=== PATIENT | female | born 1950 | race Caucasian/White ===

== ENCOUNTER 2021-07-03 16:47 | Inpatient (IN) ==
[2021-07-03] MEDS ORDERED: ONDANSETRON INJ 2 MG/ML 2 ML VIAL IV STA (18:09)
[2021-07-03] MEDS ORDERED: MoRPHine SULFATE 4 MG/ML 1 ML CARP\\VIAL IV STA (18:09)
[2021-07-03] MEDS ORDERED: VANCOMYCIN CONSULT ACTIVE PRN (18:24)
[2021-07-03] MEDS ORDERED: VANCOMYCIN HCL 2,750 MG in SODIUM CHLORIDE 0.9% 500 ML IV ONE (18:24)
--- NOTE | 2021-07-03 18:37 | XRay Report ---
XR knee LT 4V CLINICAL HISTORY: post op infection COMPARISON: None FINDINGS: Alignment of the total left knee arthroplasty is anatomic. There is no periprosthetic frac ture or unexpected radiopaque foreign body. There are skin zoila. There is left knee soft tissue sw elling with a suspected moderate joint effusion. IMPRESSION: 1. Status post total left knee arthroplasty. No periprosthetic fracture or lucency. 2. Left knee soft tissue swelling with suspected joint effusion. ACT 112: Negative or not required by law. Electronically signed by: Waqar England M.D. 07/03/2021 6:36 PM
[2021-07-03 18:53] LABS: Basophils # (auto) 0.04 K/uL (0-0.2); Basophils % (auto) 0.5 %; Eosinophils # (auto) 0.61 K/uL (0-0.5); Eosinophils % (auto) 7.8 %; Hemoglobin 11.2 g/dL (12.0-16.0); Immature Granulocytes # (auto) 0.01 K/uL (0.00-0.02); Immature Granulocytes % (auto) 0.1 %; Lymphocytes # (auto) 1.25 K/uL (1.2-3.4); Mean Corpuscular Hemoglobin 30.8 pg (25-34); Mean Corpuscular Volume 96.2 fL (80-100); Monocytes # (auto) 0.83 K/uL (0.11-0.59); Monocytes % (auto) 10.6 %; Neutrophils # (auto) 5.09 K/uL (1.4-6.5); Platelet Count 427 K/uL (130-400); RDW Coefficient of Variation 14.1 % (11.5-14.5); RDW Standard Deviation 49.5 fL (36.4-46.3); Red Blood Count 3.64 M/uL (4.2-5.4); White Blood Count 7.83 K/uL (4.8-10.8)
[2021-07-03 19:05] LABS: Potassium 3.8 mmol/L (3.5-5.1)
[2021-07-03 19:10] LABS: BUN Creatinine Ratio 13.5 (10-20); Creatinine Clr Calc Pharmacy 84.4 ml/min; Est GFR (African American) 87.2 ml/min; Est GFR (Non-African American) 75.2 ml/min
[2021-07-03 19:11] LABS: C Reactive Protein 9.03 mg/dl (0-0.29)
[2021-07-03] MEDS ORDERED: HYDROmorphone INJ 0.5 MG/0.5 ML SYR IV PRN (22:37)
[2021-07-03] MEDS ORDERED: PIPERACILL/TAZOBAC CONSULT ACTIVE PRN (23:27)
[2021-07-03] MEDS ORDERED: ACETAMINOPHEN 500 MG TAB PO PRN (23:28)
[2021-07-03] MEDS ORDERED: PIPERACILLIN/TAZOBACTAM 3.375 GM in DEXTROSE 5% 100 ML IV SCH (23:30)
[2021-07-03] MEDS ORDERED: PIPERACILLIN/TAZOBACTAM 4.5 GM in DEXTROSE 5% 100 ML IV ONE (23:45)
[2021-07-03] MEDS: SODIUM CHLORIDE 0.9% 1000ML 1,000 ML IV SCH (23:55)
--- NOTE | 2021-07-04 01:23 | Emergency Department Note ---
History of Present Illness General Chief complaint: Infection, Wound Stated complaint: INFECTION IN L KNEE Time Seen by Provider: 07/03/21 18:00 History of Present Illness Provider complaint: Left knee infection Onset (ago): week(s) 1 Location: lower extremity and left Radiation: non-radiation Severity: moderate Pain Consistency: + constant Maximum Pain Intensity: 8 Current Pain Intensity: 8 Quality: + aching Relieved By: + immobilization Exacerbated By: + movement Associated symptoms: + fever/chills and + rash; no cough, no headaches, no nausea/vomiting or no shortness of breath 71-year-old female presents emergency department for left knee infection. Patient states she had a left knee replacement done by Dr. Ziegler on June 16, 2020 1U of C. Patient states for the last 1 week she has been having chills and subjective fevers. She states she started having redness over the incision site and her pain is worsened by movement. Home Medications Medication Instructions Recorded Confirmed Type acetaminophen 500 mg tablet 100 mg PO Q8H PRN 07/03/21 07/03/21 History (Tylenol Extra Strength) aspirin 81 mg tablet,delayed 81 mg PO DAILY 07/03/21 07/03/21 History release cefadroxil 500 mg capsule 1,500 mg PO BID 07/03/21 07/03/21 History celecoxib 200 mg capsule (Celebrex) 200 mg PO BID 07/03/21 07/03/21 History duloxetine 30 mg capsule,delayed 90 mg PO DAILY 07/03/21 07/03/21 History release sprinkle Allergies Allergy/AdvReac Type Severity Reaction Status Date / Time bupropion [From Wellbutrin] AdvReac Hives Unverified 07/03/21 18:40 iodine AdvReac Hives Unverified 07/03/21 18:40 shellfish derived AdvReac Hives Unverified 07/03/21 18:40 Past Med/Surg History Medical History (Updated 07/04/21 @ 01:23 by Frank Mcneill) Depression No pertinent family history Surgical History (Updated 07/04/21 @ 01:19 by Frank Mcneill) History of knee replacement Social History Smoking Status: Former smoker Hx Alcohol Use: No Hx Substance Use: No Preferred Language: Bulgarian Communication Ability: Effective Beliefs That Will Affect Care: None Current Living Situation: Alone Other Information That Helps Us Care for You: No Feels Safe at Home: Yes Safety Concerns: Feels Safe At This Time Assistive Devices: Glasses and Walker Review of Systems A total of 10 systems reviewed and were otherwise negative Physical Exam Vital Signs Vital Signs - 24 hr 07/03/21 17:26 07/03/21 18:01 07/03/21 18:08 Temperature 36.1 C L Temperature Source Temporal Artery Scan Oral Pulse Rate 89 Pulse Rate [Apical] Pulse Rhythm Regular Respiratory Rate 20 Respiratory Effort / Characteristics Non-Labored Spontaneous Respiratory Depth Normal Respiratory Pattern Regular Blood Pressure 111/72 Blood Pressure [Right Arm] Blood Pressure Mean 85 Blood Pressure Mean [Right Arm] Pulse Oximetry 99 Oxygen Delivery Method Room Air Room Air Sepsis Recent Fever Within 48 Hours No Sepsis New/Unexplained Change in Mental Status No Sepsis Action Taken by Nursing No Action Required 07/03/21 19:17 Temperature Temperature Source Pulse Rate Pulse Rate [Apical] 84 Pulse Rhythm Respiratory Rate 20 Respiratory Effort / Characteristics Non-Labored Spontaneous Respiratory Depth Normal Respiratory Pattern Regular Blood Pressure Blood Pressure [Right Arm] 105/62 Blood Pressure Mean Blood Pressure Mean [Right Arm] 76 Pulse Oximetry 94 Oxygen Delivery Method Room Air Sepsis Recent Fever Within 48 Hours Sepsis New/Unexplained Change in Mental Status Sepsis Action Taken by Nursing Physical Exam GENERAL: She is oriented to person, place, and time. She appears well-developed and well-nourished. She does not appear distressed. HENT: Exam performed. -Head: Normocephalic and atraumatic. -Right Ear: External ear normal. No mastoid tenderness. -Left Ear: External ear normal. No mastoid tenderness. -Mouth/Throat: The oropharynx is clear and moist. No trismus in the jaw. No dental abscesses or uvula swelling. No oropharyngeal exudate or tonsillar abscesses. EYES: Conjunctivae and EOM are normal. Pupils are equal, round, and reactive to light. Right eye exhibits no discharge. Left eye exhibits no discharge. No scleral icterus. NECK: Normal range of motion. Neck supple. No JVD present. No spinous process tenderness present. No carotid bruit present. No rigidity. No tracheal deviation and normal range of motion present. No Brudzinski's sign and no Kernig's sign noted. CV: Normal rate, regular rhythm, normal heart sounds and intact distal pulses. There is no peripheral edema. Palpable radial pulses bue. PULM/CHEST: Effort normal and breath sounds normal. No respiratory distress. No stridor. She has no wheezes. She has no rales. -Chest Wall: She exhibits no tenderness. ABD: The abdomen is soft. Bowel sounds are normal. She has no distension. No mass is present. There is no tenderness. There is no rebound, no guarding, no White's sign and no tenderness at McBurney's point. Rovsig negative MUSC/SKEL: Left lower extremity: Erythema and warmth over the surgical wound over the left anterior knee. There is discharge coming from the surgical wound. Palpable DP and PT pulse. Right lower extremity: Within normal limits. Palpable DP and PT pulse. NEURO: She is alert and oriented to person, place, and time. She has normal strength. No cranial nerve deficit or sensory deficit. Coordination and gait normal. GCS eye subscore is 4. GCS verbal subscore is 5. GCS motor subscore is 6. Cerebellar tests wnl. SKIN: Skin is warm and dry. She is not diaphoretic. PSYCH: She has a normal mood and affect. Behavior is normal. Judgment and thought content normal. Course Course 1800: The patient was evaluated in room B12. A complete history and physical exam was performed Cardiac monitoring: An order was placed for continuous cardiac monitoring. The monitor shows a rate of 80 with sinus rhythm 2000: Vital signs stable. Labs show an elevated CRP and ESR. Vancomycin given for a presumed postoperative infection. Discussed the case with patient surgeon Dr. Ziegler who states that the patient will be admitted to his service. Administered Medications Sodium Chloride (Nss 1000ml) 1,000 mls @ 125 mls/hr IV .Q8H DEANNE Stop: 08/02/21 23:29 Last Infusion: 07/04/21 00:09 Dose: 0 mls/hr Documented by: [id number] Admin: 07/03/21 23:55 Dose: 125 mls/hr Documented by: [id number] Discontinued Medications Hydromorphone HCl (Hydromorphone Inj 0.5 Mg/0.5 Ml Syr) 0.5 mg IV Q4H PRN PRN Reason: Pain Stop: 07/17/21 22:36 Last Admin: 07/03/21 23:00 Dose: 0.5 mg Documented by: [id number] Vancomycin HCl 2,750 mg/ (Sodium Chloride) 555 mls @ 200 mls/hr IV NOW ONE Stop: 07/03/21 21:10 Last Infusion: 07/03/21 23:27 Dose: 0 mls/hr Documented by: [id number] Admin: 07/03/21 19:23 Dose: 200 mls/hr Documented by: [id number] Piperacillin Sod/Tazobactam (Sod 4.5 gm/ Dextrose) 120 mls @ 200 mls/hr IV ONE ONE; Protocol Stop: 07/04/21 00:20 Last Infusion: 07/04/21 00:58 Dose: 200 mls/hr Documented by: [id number] Infusion: 07/04/21 00:10 Dose: 0 mls/hr Documented by: [id number] Admin: 07/03/21 23:55 Dose: 200 mls/hr Documented by: [id number] Morphine Sulfate (Morphine Sulfate 4 Mg/Ml 1 Ml Carp\Vial) 4 mg IV NOW STA Stop: 07/03/21 18:10 Last Admin: 07/03/21 18:47 Dose: 4 mg Documented by: [id number] Ondansetron HCl (Ondansetron Inj 2 Mg/Ml 2 Ml Vial) 4 mg IV NOW STA Stop: 07/03/21 18:10 Last Admin: 07/03/21 18:47 Dose: 4 mg Documented by: [id number] Medical Decision Making Laboratory Data Result diagrams: 07/03/21 18:31 07/03/21 18:31 Lab Results 07/03/21 07/03/21 07/03/21 Range/Units 18:30 18:30 18:31 WBC 7.83 (4.8-10.8) K/uL RBC 3.64 L (4.2-5.4) M/uL Hgb 11.2 L (12.0-16.0) g/dL Hct 35.0 L (37-47) % MCV 96.2 (80-100) fL MCH 30.8 (25-34) pg MCHC 32.0 (32-36) g/dL RDW Std Deviation 49.5 H (36.4-46.3) fL RDW Coeff of Nayan 14.1 (11.5-14.5) % Plt Count 427 H (130-400) K/uL MPV 9.0 (7.4-10.4) fL Immature Gran % (Auto) 0.1 % Neut % (Auto) 65.0 % Lymph % (Auto) 16.0 % [place] % (Auto) 10.6 % Eos % (Auto) 7.8 % Baso % (Auto) 0.5 % Neut # (Auto) 5.09 (1.4-6.5) K/uL Lymph # (Auto) 1.25 (1.2-3.4) K/uL [place] # (Auto) 0.83 H (0.11-0.59) K/uL Eos # (Auto) 0.61 H (0-0.5) K/uL Baso # (Auto) 0.04 (0-0.2) K/uL Immature Gran # (Auto) 0.01 (0.00-0.02) K/uL ESR (0-30) mm/hr Sodium (136-145) mmol/L Potassium (3.5-5.1) mmol/L Chloride (98-107) mmol/L Carbon Dioxide (21-32) mmol/L Anion Gap (3-11) BUN (7-18) mg/dl Creatinine (0.6-1.2) mg/dl Est Cr Clr Drug Dosing ml/min Est GFR ( Amer) ml/min Est GFR (Non-Af Amer) ml/min BUN/Creatinine Ratio (10-20) Glucose (70-99) mg/dl Lactate (0.4-2.0) mmol/L Calcium (8.5-10.1) mg/dl C-Reactive Protein (0-0.29) mg/dl COVID-19 Eval Order Covid19 at [facility] SARS-CoV-2 (PCR) NEGATIVE (Negative) Hepatitis C Ab Screen (Neg) 07/03/21 07/03/21 07/03/21 Range/Units 18:31 18:31 18:31 WBC (4.8-10.8) K/uL RBC (4.2-5.4) M/uL Hgb (12.0-16.0) g/dL Hct (37-47) % MCV (80-100) fL MCH (25-34) pg MCHC (32-36) g/dL RDW Std Deviation (36.4-46.3) fL RDW Coeff of Nayan (11.5-14.5) % Plt Count (130-400) K/uL MPV (7.4-10.4) fL Immature Gran % (Auto) % Neut % (Auto) % Lymph % (Auto) % [place] % (Auto) % Eos % (Auto) % Baso % (Auto) % Neut # (Auto) (1.4-6.5) K/uL Lymph # (Auto) (1.2-3.4) K/uL [place] # (Auto) (0.11-0.59) K/uL Eos # (Auto) (0-0.5) K/uL Baso # (Auto) (0-0.2) K/uL Immature Gran # (Auto) (0.00-0.02) K/uL ESR 70 H (0-30) mm/hr Sodium 139 (136-145) mmol/L Potassium 3.8 (3.5-5.1) mmol/L Chloride 107 (98-107) mmol/L Carbon Dioxide 25 (21-32) mmol/L Anion Gap 7.0 (3-11) BUN 11 (7-18) mg/dl Creatinine 0.80 (0.6-1.2) mg/dl Est Cr Clr Drug Dosing 84.4 ml/min Est GFR ( Amer) 87.2 ml/min Est GFR (Non-Af Amer) 75.2 ml/min BUN/Creatinine Ratio 13.5 (10-20) Glucose 89 (70-99) mg/dl Lactate 1.4 (0.4-2.0) mmol/L Calcium 9.0 (8.5-10.1) mg/dl C-Reactive Protein 9.03 H (0-0.29) mg/dl COVID-19 Eval Order SARS-CoV-2 (PCR) (Negative) Hepatitis C Ab Screen (Neg) 07/03/21 07/03/21 Range/Units 18:31 18:45 WBC (4.8-10.8) K/uL RBC (4.2-5.4) M/uL Hgb (12.0-16.0) g/dL Hct (37-47) % MCV (80-100) fL MCH (25-34) pg MCHC (32-36) g/dL RDW Std Deviation (36.4-46.3) fL RDW Coeff of Nayan (11.5-14.5) % Plt Count (130-400) K/uL MPV (7.4-10.4) fL Immature Gran % (Auto) % Neut % (Auto) % Lymph % (Auto) % [place] % (Auto) % Eos % (Auto) % Baso % (Auto) % Neut # (Auto) (1.4-6.5) K/uL Lymph # (Auto) (1.2-3.4) K/uL [place] # (Auto) (0.11-0.59) K/uL Eos # (Auto) (0-0.5) K/uL Baso # (Auto) (0-0.2) K/uL Immature Gran # (Auto) (0.00-0.02) K/uL ESR (0-30) mm/hr Sodium (136-145) mmol/L Potassium (3.5-5.1) mmol/L Chloride (98-107) mmol/L Carbon Dioxide (21-32) mmol/L Anion Gap (3-11) BUN (7-18) mg/dl Creatinine (0.6-1.2) mg/dl Est Cr Clr Drug Dosing ml/min Est GFR ( Amer) ml/min Est GFR (Non-Af Amer) ml/min BUN/Creatinine Ratio (10-20) Glucose (70-99) mg/dl Lactate (0.4-2.0) mmol/L Calcium (8.5-10.1) mg/dl C-Reactive Protein Cancelled (0-0.29) mg/dl COVID-19 Eval Order SARS-CoV-2 (PCR) (Negative) Hepatitis C Ab Screen Neg (Neg) Imaging Data Radiologist's Impression: Knee X-Ray 07/03/21 18:08 XR knee LT 4V CLINICAL HISTORY: post op infection COMPARISON: None FINDINGS: Alignment of the total left knee arthroplasty is anatomic. There is no periprosthetic fracture or unexpected radiopaque foreign body. There are skin zoila. There is left knee soft tissue swelling with a suspected moderate joint effusion. IMPRESSION: 1. Status post total left knee arthroplasty. No periprosthetic fracture or lucency. 2. Left knee soft tissue swelling with suspected joint effusion. ACT 112: Negative or not required by law. Electronically signed by: Waqar England M.D. 07/03/2021 6:36 PM MDM Narrative Vital signs stable. Labs show an elevated CRP and ESR. Vancomycin given for a presumed postoperative infection. Discussed the case with patient surgeon Dr. Ziegler who states that the patient will be admitted to his service. Impression & Plan Post-operative infection Discharge Plan Visit Data Chief Complaint: Infection, Wound Stated Complaint: INFECTION IN L KNEE Discharge Problem: Post-operative infection Patient Disposition: Admitted As Inpatient Discharge Instructions Interventions: ED Discharge Assessment Last Done: 07/03/21 21:38
--- NOTE | 2021-07-04 02:05 | Consultation Report ---
DATE OF CONSULTATION: 07/03/2021 CHIEF COMPLAINT: Left lower extremity infection. HISTORY OF PRESENT ILLNESS: This is a 71-year-old female with no significant past medical history, she had left knee replacement done on June 16, because of infection of the surgical site. The patient says since about 1 week ago she noticed redness and pain in the left lower extremity, ambulating, but not able to put much weight on that leg. Denies any fever, but had chills, . Currently, resting comfortably and hemodynamically stable. Denies any chest pain, no shortness of breath, no cough, no nausea, no abdominal pain, normal bowel and bladder movements. Nausea, diarrhea a few days back, but that is resolved. No headache, no blurred visions, no earache, no runny nose, no sore throat. ALLERGIES: WELLBUTRIN, IODINE, SHELLFISH. PAST MEDICAL HISTORY: As mentioned above. PAST SURGICAL HISTORY: Had , right ankle surgery, left knee meniscus surgery. MEDICATIONS: Tylenol Extra Strength p.o. q. 8 hours p.r.n., aspirin 81 mg p.o. daily, cefadroxil 1500 mg p.o. b.i.d., Celebrex 200 mg p.o. b.i.d., duloxetine 90 mg p.o. daily. FAMILY HISTORY: Significant for father and mother had diabetes and heart disease. SOCIAL HISTORY: The patient quit smoking many years ago. No alcohol. Lives alone. REVIEW OF SYSTEMS: As per HPI. Rest of review of systems is negative. PHYSICAL EXAMINATION: GENERAL: The patient is obese, not in acute distress. VITAL SIGNS: Temperature 36.6, pulse 80, respirations 16, blood pressure 114/75, oxygen 96% on room air. HEENT: Extraocular muscles intact. NECK: No JVD, no neck masses. CARDIOVASCULAR: S1 and S2 heard. Regular rate and rhythm. No murmur, no gallop. RESPIRATORY SYSTEM: Normal AP diameter. No accessory muscle use. No wheezing, no crackles. ABDOMEN: Soft, bowel sounds present, nontender, no distention. CENTRAL NERVOUS SYSTEM: Cranial nerves II-XII grossly intact, nonfocal. EXTREMITIES: Left lower extremity: Recently the left knee arthroplasty, incision site erythematous and also below the knee erythema and swelling and tender to palpation. LABORATORY DATA: WBC 7.8, hemoglobin 11.2, hematocrit 35, platelets 427. Sodium 139, potassium 3.8, chloride 107, bicarb 25, BUN 11, creatinine 0.8, serum glucose 89. Lactate 1.4, calcium 9. C-reactive protein 9.03. SARS-CoV-2 PCR negative. Knee x-ray, status post total left knee arthroplasty. No periprosthetic fracture or lucency, left knee soft tissue swelling, suspected joint effusion. ASSESSMENT AND PLAN: This 71-year-old female presents with left knee infection. 1. Left lower extremity knee infection and also possible cellulitis, recently on June 16 had left knee replacement. Orthopedic started daptomycin, which will be continued.Will also add zosyn for now. Gentle fluids.Follow blood cultures. Pain control. Further management as per orthopedics. We will keep her n.p.o. until seen by orthopedics. 2. Deep venous thrombosis prophylaxis per orthopedics. DISPOSITION: Monitor in the medical floor Job ID: [id number] [facility]
[2021-07-04] MEDS: PIPERACILLIN/TAZOBACTAM 4.5 GM in DEXTROSE 5% 100 ML IV SCH ×3 (04:30→21:38)
[2021-07-04] MEDS: DAPTOmycin 325 MG in SYRINGE 0 ML IV SCH (04:36)
[2021-07-04 05:50] LABS: Basophils # (auto) 0.05 K/uL (0-0.2); Basophils % (auto) 0.8 %; Eosinophils # (auto) 0.69 K/uL (0-0.5); Eosinophils % (auto) 10.8 %; Hematocrit (blood only) 33.5 % (37-47); Hemoglobin 10.5 g/dL (12.0-16.0); Immature Granulocytes # (auto) 0.01 K/uL (0.00-0.02); Immature Granulocytes % (auto) 0.2 %; Lymphocytes # (auto) 0.95 K/uL (1.2-3.4); Lymphocytes % (auto) 14.8 %; Mean Corpuscular Hemoglobin 31.1 pg (25-34); Mean Corpuscular Hgb Conc 31.3 g/dL (32-36); Mean Corpuscular Volume 99.1 fL (80-100); Monocytes # (auto) 0.87 K/uL (0.11-0.59); Monocytes % (auto) 13.6 %; Neutrophils # (auto) 3.83 K/uL (1.4-6.5); Neutrophils % (auto) 59.8 %; Platelet Count 381 K/uL (130-400); RDW Coefficient of Variation 14.3 % (11.5-14.5); RDW Standard Deviation 51.1 fL (36.4-46.3); Red Blood Count 3.38 M/uL (4.2-5.4)
[2021-07-04 06:08] LABS: BUN Creatinine Ratio 13.4 (10-20); Calcium 8.2 mg/dl (8.5-10.1); Creatinine Clr Calc Pharmacy 85.7 ml/min; Est GFR (African American) 94.3 ml/min; Est GFR (Non-African American) 81.3 ml/min; Magnesium 2.1 mg/dl (1.8-2.4)
--- NOTE | 2021-07-04 06:54 | Ultrasound Report ---
LEFT LOWER EXTREMITY VENOUS DOPPLER CLINICAL HISTORY: left lower extremity edema and pain. dvt? COMPARISON STUDY: No previous studies for comparison. TECHNIQUE: Sonography of the deep venous system of the left lower extremity was performed. Compressi on and augmentation were evaluated. FINDINGS: The left common femoral, superficial femoral and popliteal veins were compressible. Augmen tation was normal. Flow was shown within the deep calf vessels. IMPRESSION: No evidence of deep venous thrombus within the left lower extremity. ACT 112: Negative or not required by law. Electronically signed by: Waqar England M.D. 07/04/2021 6:53 AM
[2021-07-04] MEDS: traMADol HCL 50 MG TABLET PO PRN ×2 (07:33→19:49)
[2021-07-04] MEDS: ASPIRIN 81 MG ECTAB PO SCH (08:31)
[2021-07-04] MEDS: DULoxetine HCL 30 MG CAP PO SCH (08:32)
[2021-07-04] MEDS: SODIUM CHLORIDE 0.9% 1000ML 1,000 ML IV SCH ×2 (08:38→16:33)
--- NOTE | 2021-07-04 15:54 | Hospitalist Progress Note ---
Date of Service July 04, 2021 Assessment & Plan (1) Post-operative infection: (2) Infection of knee: Plan: ASSESSMENT AND PLAN: This 71-year-old female presents with left knee infection. 1. Left lower extremity knee infection and also possible cellulitis, recently on June 16 had left knee replacement. -- blood cultures pending -- continue Dapto + Zosyn discussed with Ortho Mild Hyxpoxia - asymptomatic clear breath sounds BL - discussed with RN, check pulse ox on forehead check CXR 2. Deep venous thrombosis prophylaxis per orthopedics. Admission and Anticipated Discharge Date Admission Date: July 03, 2021 Subjective ff up for knee infection, L knee, s/p arthroplasty seen resting in bed, comfortable reports pain on the L knee about the same no chest pain, dyspnea, palpitations, dizziness no fever/chills no other symptoms Review of Systems Review of Systems: all noted and negative except for above Physical Exam Physical Exam: General- oriented x 3, not in distress, speaks in sentences with no effort or accessory muscle use Head- atraumatic Eyes- PERRL, EOMI, anicteric ENT- oropharynx clear Neck- supple, no JVD, no adenopathy, no thyromegaly; carotids +2/2, no bruits appreciated Lungs- clear to auscultation bilaterally, no rales/wheezes Heart- normal rate, regular rhythm; no murmur, no gallop, no rub appreciated Abdomen- normal bowel sounds, nondistended, soft, nontender, no masses or hepatosplenomegaly Extremities- L knee: (+) moderate edema with erythema, tenderness, minimal drainage on dressing R LE: no pretibial edema, no calf tenderness; peripheral pulses intact Neuro- alert, oriented x 3; CN 2-12 grossly intact; motor 5/5 bilaterally;sensation 100% on all extremities; no other gross focal neurologic deficits Skin- warm & dry Results & Data Results & Data ([facility]) Vital Signs (Past 12 Hours) Vital Signs Temp Pulse Resp BP Pulse Ox 07/04/21 15:39 36.7 C 86 18 89/53 L 94 07/04/21 08:38 96 07/04/21 07:02 36.4 C L 78 18 108/72 95 all noted and reviewed including below (1) Post-operative infection Encounter type: initial encounter Postoperative infection type: superficial incisional surgical site Qualified Code(s): T81.41XA - Infection following a procedure, superficial incisional surgical site, initial encounter
--- NOTE | 2021-07-04 16:15 | XRay Report ---
XR chest 1V portable CLINICAL HISTORY: hypoxia COMPARISON STUDY: No previous studies for comparison. FINDINGS: No pneumothorax. No pleural effusion. Lung volumes are decreased with crowded lung markings. Diffuse reticular opacities are seen bilateral ly. Patchy areas of consolidation are seen within bilateral basis and might represent atelectasis or infiltrate. Mild peribronchial cuffing is seen bilaterally. Cardiomediastinal silhouette is prominent. Aorta is calcified. Pulmonary vasculature is indistinct.. Osseous structures: Degenerative changes of the spine left shoulder. Orthopedic hardware is seen pro jecting to the lower cervical spine. IMPRESSION: 1. Decreased lung volumes. Possibly pulmonary edema. Prominent cardiac silhouette. 2. Atelectasis or infiltrates at bilateral bases. ACT 112: Negative or not required by law. The above report was generated using voice recognition software. It may contain grammatical, syntax o r spelling errors. Electronically signed by: Abby Masters DO 07/04/2021 4:13 PM
[2021-07-04] MEDS ORDERED: FUROSEMIDE 20 MG in SYRINGE 0 ML IV ONE (16:45)
--- NOTE | 2021-07-04 17:47 | History & Physical Report ---
Date of Service July 04, 2021 Assessment & Plan (1) Infection of knee: Plan: Patient was seen and examined by Dr. Ziegler today and left knee aspiration was done and sent for further analysis. Currently on Dapto and Zosyn Patient will be npo tonight after midnight Will plan for left knee I &D possible poly exchange tomorrow am. Admission and Anticipated Discharge Date Admission Date: July 03, 2021 History of Present Illness Chief Complaint: left knee infection Primary Care Provider: NO PCP 71 y/o white female presenting post-op left TKA with concern for infection. She had a Left TKA on 06/[address] Ziegler. She was seen in the office about a week later with early onset left knee cellulitis and started on antibiotics. She was seen in follow up with worsening symptoms of infection and admitted for further treatment. She denies fever but has had some chills and pain left knee. Denies CP, sob today. Allergies Allergy/AdvReac Type Severity Reaction Status Date / Time bupropion [From Wellbutrin] AdvReac Hives Unverified 07/03/21 18:40 iodine AdvReac Hives Unverified 07/03/21 18:40 shellfish derived AdvReac Hives Unverified 07/03/21 18:40 Home Medications Medication Instructions Recorded Confirmed Type acetaminophen 500 mg tablet 100 mg PO Q8H PRN 07/03/21 07/03/21 History (Tylenol Extra Strength) aspirin 81 mg tablet,delayed 81 mg PO DAILY 07/03/21 07/03/21 History release cefadroxil 500 mg capsule 1,500 mg PO BID 07/03/21 07/03/21 History celecoxib 200 mg capsule (Celebrex) 200 mg PO BID 07/03/21 07/03/21 History duloxetine 30 mg capsule,delayed 90 mg PO DAILY 07/03/21 07/03/21 History release sprinkle Past Med/Surg History Medical History (Updated 07/04/21 @ 15:53 by Surjit Lennon MD) Depression No pertinent family history Surgical History (Updated 07/04/21 @ 01:19 by Frank Mcneill) History of knee replacement Social History Smoking Status: Former smoker Hx Alcohol Use: No Hx Substance Use: No Preferred Language: Chinese Communication Ability: Effective Beliefs That Will Affect Care: None marital status: Current Living Situation: Alone Other Information That Helps Us Care for You: No Feels Safe at Home: Yes Safety Concerns: Feels Safe At This Time Assistive Devices: Walker Review of Systems Denies CP, SOB, fevers, dizziness, lightheadedness. She has had chills and pain left knee Physical Exam Physical Exam: Left knee incision s/p TKA. Erythema and slight purulent drainage distal portion incision. Calves are soft and non tender. Pain with active knee flexion/extension. NVI Results & Data ([facility]) Vital Signs (Past 12 Hours) Vital Signs Temp Pulse Pulse Resp BP Pulse Ox 07/04/21 16:46 89 90/57 L 93 07/04/21 15:39 36.7 C 86 18 89/53 L 94 07/04/21 08:38 96 07/04/21 07:02 36.4 C L 78 18 108/72 95
[2021-07-04] MEDS ORDERED: MoRPHine SULFATE 4 MG/ML 1 ML CARP\\VIAL IV STA (22:06)
[2021-07-05] MEDS: PIPERACILLIN/TAZOBACTAM 4.5 GM in DEXTROSE 5% 100 ML IV SCH ×3 (04:41→21:29)
[2021-07-05] MEDS: DAPTOmycin 325 MG in SYRINGE 0 ML IV SCH (04:41)
--- NOTE | 2021-07-05 07:32 | Anesthesiology Consultation ---
Date of Service July 05, 2021 Assessment & Plan Chart Review Chart Review: Acceptable Risk for Surgery and Patient NOT seen in Pre Admission Testing Consults Requested none ASA ASA3 Proposed Anesthesia Anesthesia Type: General History Surgery Operation Date: 07/05/21 08:45 Proposed Procedures p Left Knee I&D, possible poly exchange(Left) - Enio Ziegler DO Height/Weight Height: 5 ft 5 in Weight: 106.1 kg Allergies Allergy/AdvReac Type Severity Reaction Status Date / Time bupropion [From Wellbutrin] AdvReac Hives Unverified 07/03/21 18:40 iodine AdvReac Hives Unverified 07/03/21 18:40 shellfish derived AdvReac Hives Unverified 07/03/21 18:40 Medications Home Medications Medication Instructions Recorded Confirmed Last Taken acetaminophen 500 mg tablet 100 mg PO Q8H PRN 07/03/21 07/03/21 Unknown (Tylenol Extra Strength) aspirin 81 mg tablet,delayed 81 mg PO DAILY 07/03/21 07/03/21 07/03/21 release cefadroxil 500 mg capsule 1,500 mg PO BID 07/03/21 07/03/21 07/03/21 celecoxib 200 mg capsule (Celebrex) 200 mg PO BID 07/03/21 07/03/21 07/03/21 duloxetine 30 mg capsule,delayed 90 mg PO DAILY 07/03/21 07/03/21 Unknown release sprinkle Active Medications Generic Name Dose Route Start Last Admin Trade Name Freq PRN Reason Stop Dose Admin Acetaminophen 1,000 mg 07/03/21 23:28 07/04/21 21:41 Acetaminophen 500 Mg Tab PO 08/02/21 23:27 1,000 mg TID PRN Administration Pain or Fever Aspirin 81 mg 07/04/21 09:00 07/04/21 08:31 Aspirin 81 Mg Ectab PO 08/03/21 08:59 81 mg DAILY DEANNE Administration Duloxetine HCl 90 mg 07/04/21 09:00 07/04/21 08:32 Duloxetine Hcl 30 Mg Cap PO 08/03/21 08:59 90 mg DAILY DEANNE Administration Daptomycin 325 mg/ Syringe 6.5 mls @ 3.25 mls/min 07/04/21 04:00 07/05/21 04:41 IV 07/11/21 03:59 3.25 mls/min Q24H DEANNE Administration Protocol Piperacillin Sod/Tazobactam 120 mls @ 30 mls/hr 07/04/21 05:00 07/05/21 04:41 Sod 4.5 gm/ Dextrose IV 07/11/21 04:59 30 mls/hr Q8H DEANNE Administration Protocol Tramadol HCl 50 mg 07/03/21 23:28 07/04/21 19:49 Tramadol Hcl 50 Mg Tablet PO 08/02/21 23:27 50 mg Q6H PRN Administration Pain NPO Date Last Intake of Fluids: 07/03/21 Time Last Intake of Fluids: 23:59 Date Last Intake of Solids: 07/03/21 Time Last Intake of Solids: 23:59 Past Medical History Medical History Depression No pertinent family history Exercise / Class Metabolic Activity III < 4 Walking/Shop/Light housework Past Surgical History Surgical History History of knee replacement Past Anesthesia History No Hx of Anesthesia Complications and No Family Hx of Anesthesia Complications History of PONV No Hx of PONV and No Hx of Motion Sickness Social History Smoking Status: Former smoker Hx Alcohol Use: No Hx Substance Use: No Physical Exam Vital Signs Last Vital Signs Temp 36.9 C 07/04/21 22:17 Pulse 89 07/04/21 16:46 Resp 17 07/04/21 22:17 BP 97/61 L 07/04/21 22:17 Pulse Ox 95 07/04/21 22:17 Testing Laboratory Results 07/04/21 05:18 07/04/21 05:18 07/04/21 00:47 Aerobic Blood Culture - Preliminary Blood No growth in Aerobic bottle after 24 hours. 07/03/21 18:45 Aerobic Blood Culture - Preliminary Blood No growth in Aerobic bottle after 24 hours. Anaerobic Blood Culture - Preliminary No growth in Anaerobic bottle after 24 hours. 07/04/21 Unknown Gram Stain - Final Knee,Left Chest X-Ray Date: 07/04/21 Findings: + atelectasis (B/L bases vs infiltrate), + infiltrate (diffuse reticular opacities B/L;mild peribrochial cuffing), + pulmonary vascular congestion (?) and + atherosclerosis of thoracic aorta
[2021-07-05] MEDS ORDERED: MIDAZOLAM HCL 1 MG/ML 2ML VIAL ONE (07:39)
[2021-07-05] MEDS ORDERED: fentaNYL citrate 100 MCG/2 ML VIAL ONE (07:39)
[2021-07-05] MEDS: DULoxetine HCL 30 MG CAP PO SCH (09:15)
--- NOTE | 2021-07-05 09:26 | History & Physical Bridge Note ---
Date of Service July 05, 2021 History & Physical Bridge Note I have examined the patient, reviewed the History & Physical and in the interval since the performance of the History & Physical I have noted the following changes of clinical significance: Will require irrigation and debridement left total knee arthroplasty with possible polyethylene exchange.
[2021-07-05] MEDS ORDERED: PROMETHAZINE HCL 12.5 MG in SODIUM CHLORIDE 0.9% 50 ML IV PRN (09:54)
[2021-07-05] MEDS ORDERED: FLUMAZENIL 0.1 MG/1 ML 10 ML VIAL IV PRN (09:54)
[2021-07-05] MEDS ORDERED: ONDANSETRON INJ 2 MG/ML 2 ML VIAL IV PRN ×2 (09:54→12:35)
[2021-07-05] MEDS ORDERED: ATROPINE SULFATE 0.1 MG/ML 10ML SYR IV PRN (09:54)
[2021-07-05] MEDS ORDERED: fentaNYL citrate 100 MCG/2 ML VIAL IV PRN (09:54)
[2021-07-05] MEDS ORDERED: ePHEDrine sulfate 50 MG/ML AMP IV PRN (09:54)
[2021-07-05] MEDS ORDERED: LABETALOL HCL IV 5 MG/ML 20ML IV PRN (09:54)
[2021-07-05] MEDS ORDERED: HYDROmorphone INJ 1 MG/ML SYRINGE IV PRN (09:54)
[2021-07-05] MEDS ORDERED: NALOXONE HCL 0.4 MG/1 ML VIAL/CARP IV PRN ×2 (09:54→12:35)
--- NOTE | 2021-07-05 09:56 | Communication Note ---
Date of Service: July 05, 2021 EKG-NSR@73;NS ST ABNL
[2021-07-05] MEDS ORDERED: KETAMINE 50 MG/5 ML SYRINGE ONE (10:11)
[2021-07-05] MEDS ORDERED: LIDOCAINE 2% 2 ML VIAL/AMP(20MG/ML) INFIL ONE (10:11)
[2021-07-05] MEDS ORDERED: ONDANSETRON INJ 2 MG/ML 2 ML VIAL ONE (10:11)
[2021-07-05] MEDS ORDERED: PROPOFOL IV EMULSION 10 MG/ML 20 ML VIAL IV ONE (10:11)
[2021-07-05] MEDS ORDERED: HYDROmorphone INJ 2 MG/ML SYR/VIAL ONE (10:14)
[2021-07-05] MEDS ORDERED: SODIUM CHLORIDE 0.9% PF 50 ML VIAL ONE (10:28)
[2021-07-05] MEDS ORDERED: EPINEPHrine INJ 1 MG/ML AMP ONE (10:28)
[2021-07-05] MEDS ORDERED: BUPIVACAINE 0.25% 30 ML VIAL ONE (10:28)
[2021-07-05] MEDS ORDERED: BUPIVACAINE LIPOSOME 1.3% 266 MG/20 ML VIAL ONE (10:29)
--- NOTE | 2021-07-05 12:02 | Post Operative Brief Note ---
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, septic left knee arthroplasty I identified the patient and participated in the time-out.: Yes Procedure Operation Date: 07/05/21 08:45 Actual Procedures p Irrigation and debridement left total knee arthroplasty , left total knee knee polyethelene exchange 11 mm posterior stabilized (Left) - Enio Ziegler DO Surgeon Enio Ziegler DO [employer] Cristina Osullivan PA-C Estimated Blood Loss 100 Findings Consistent with Post-Op Diagnosis Specimens Aerobic anaerobic Gram stain prepatellar bursa Aerobic anaerobic Gram stain deep joint capsule Aerobic anaerobic Gram stain posterior to polyethylene Drains Hemovac Drain (+Jessi drain) Anesthesia Type General Regional Complications none Disposition Accompanied Patient To Recovery: No
[2021-07-05] MEDS ORDERED: bisacodyL 10 MG SUPP PR PRN (12:35)
[2021-07-05] MEDS ORDERED: diphenhydrAMINE Capsule 25 MG CAP PO PRN (12:35)
[2021-07-05] MEDS ORDERED: MAGNESIUM HYDROXIDE SUSP 30 ML UDC PO PRN (12:35)
[2021-07-05] MEDS ORDERED: SODIUM CHLORIDE 0.9% 1000ML 1,000 ML IV SCH (12:45)
[2021-07-05] MEDS: ASPIRIN 81 MG ECTAB PO SCH ×2 (13:08→21:28)
--- NOTE | 2021-07-05 13:12 | XRay Report ---
XR knee LT 1 or 2V routine CLINICAL HISTORY: Surgical Post Op COMPARISON: Left knee radiographs July 03, 2021. FINDINGS: Left knee arthroplasty is noted. There is no periprosthetic fracture or unexpected radiopa que foreign body. Surgical drain is in place. IMPRESSION: No periprosthetic fracture or lucency. Surgical drain in place. ACT 112: Negative or not required by law. Electronically signed by: Waqar England M.D. 07/05/2021 1:11 PM
--- NOTE | 2021-07-05 13:13 | Anesthesiology Progress Note ---
Date of Service July 05, 2021 Anesthesia Post Procedure Vital Signs Vital Signs: Temp Pulse Pulse Pulse Resp BP BP 07/05/21 13:00 36.4 C L 96 H 16 88/59 L 07/05/21 12:50 97 H 15 101/61 07/05/21 12:40 94 H 12 108/63 07/05/21 12:30 94 H 13 109/58 L 07/05/21 12:22 36.3 C L 96 H 14 99/59 L 07/05/21 07:34 36.5 C 75 18 88/55 L 07/04/21 22:17 36.9 C 17 97/61 L 07/04/21 16:46 89 90/57 L 07/04/21 15:39 36.7 C 86 18 89/53 L Pulse Ox 07/05/21 13:00 93 07/05/21 12:50 93 07/05/21 12:40 98 07/05/21 12:30 99 07/05/21 12:22 98 07/05/21 07:34 96 07/04/21 22:17 95 07/04/21 16:46 93 07/04/21 15:39 94 Pain Intensity Left Knee: Pain Intensity: 8 Transfer of Care Handoff Completed per policy Notes Mental Status: alert / awake / arousable Patient Amnestic to Procedure: Yes Nausea / Vomiting: adequately controlled Pain: adequately controlled Airway Patency, RR, SpO2: stable & adequate BP & HR: stable & adequate Hydration State: stable & adequate Anesthetic Complications: no major complications apparent
[2021-07-05] MEDS: KETOROLAC TROMETHAMINE 15 MG/ML VIAL IV SCH ×2 (13:55→19:27)
--- NOTE | 2021-07-05 14:32 | Operative Report (OR) ---
DATE OF PROCEDURE: 07/05/2021 PREOPERATIVE DIAGNOSIS: Left septic total knee arthroplasty. POSTOPERATIVE DIAGNOSIS: Left septic total knee arthroplasty in addition to infection, status post l eft total knee arthroplasty. PROCEDURE: 1. Irrigation and debridement of left total knee arthroplasty. 2. Left total knee polyethylene exchange, 11 mm posterior stabilized. SURGEON: Enio Ziegler DO. DIRECTOR DIETETICS DEPARTMENT: Cristina Osullivan PA-C who was present for patient positioning, sterile prep and drape , management of retractors and instruments. He was present through the critical portions of the case including wound closure, application of sterile dressing and transport of the patient to recovery. ANESTHESIA: General LMA with intra-articular local, Exparel. SPECIMENS: 1. Aerobic, anaerobic, Gram stain prepatellar bursa. 2. Anaerobic, aerobic, Gram stain deep joint capsule. 3. Aerobic, anaerobic, Gram stain posterior to the polyethylene after removal. DRAINS: Hemovac x2 deep and Prevena superficial wound drain. COMPLICATIONS: None. BLOOD LOSS: 100 mL. PERTINENT HISTORY: This is a 71-year-old female who had previous left total knee arthroplasty on . Initially, had an uneventful recovery course. However, approximately 1 week prior to admission, she noticed redness and pain in the left lower extremity with ambulation, difficulty with putting an y weight on it and difficulty with any range of motion. Denied fevers, however, had chills. The pat ient then presented to the Emergency Department with a painful, swollen left total knee arthroplasty, seen by the emergency physician and admitted to the hospital for further care and management. The p atient did relate that the household dog does sleep in the family bed with the patient and at some po int, there was noted to be dog hair in the incision site. After reassessment and antibiotics, aspiration was performed at bedside and after reassessing the pat ient, it was decided that the patient would benefit from irrigation and debridement of the septic lef t total knee arthroplasty with possible polyethylene exchange. All potential risks, benefits, complications, alternatives, rehab potential for incomplete relief of symptoms, need for further surgery, DVT, PE, , persistent pain, swelling, scarring, weakness, ne urovascular injury, wound complications, hardware failure, nonunion, malunion, bone fracture, loss of arthroplasty components, need for further revision surgery and ongoing IV antibiotics were discussed with the patient. The patient decided to proceed with the procedure as indicated. DESCRIPTION OF PROCEDURE: The patient was taken to the operative suite and placed supine on the oper ating room table. After review of consent and identification of proper site, the patient was anesthe tized, LMA was placed. Tourniquet was placed on the left thigh over cast padding. Left lower extrem ity had the surgical zoila removed from the initial procedure and then the left lower extremity was then sterilely prepped and draped in the usual sterile fashion, elevated, and tourniquet inflated to 350 mmHg. There is no exsanguination performed due to the nature of the infection. Next, the surgical timeout was performed and a 10 blade scalpel was then used to incise the previousl y created incision in the same line anterior on the left knee. The incision was then deepened throug h skin and subcutaneous tissue and the previously placed sutures. Skin rakes were gently used to ret ract soft tissue revealing the deep sutures. The sutures were then meticulously removed with a hemos tat and a forceps in their entirety. Next, the prepatellar bursal region was visualized and thin ser ous fluid was encountered. This was cultured in the prepatellar bursa and sent for specimen, aerobic , anaerobic, Gram stain. Then, with compression and palpation along the joint capsule, there was noted to be a small area with fluid escaping. The rest of the suture lines intact. There was a secondary hole in the joint capsul e. Therefore, based upon communication of the suprapatellar bursal fluid to the deep joint capsule, the decision was made to open the joint capsule and then proceed with the entirety of the planned pro cedure including polyethylene exchange. Next, deep joint capsule was opened and all sutures were removed with a hemostat and forceps. Next, the polyethylene was then loosened with a mallet and osteotome. Polyethylene was removed without hua ging the locking mechanism of the tibial tray. The poly was removed and then specimen was obtained f or aerobic, anaerobic, Gram stain posterior to where the polyethylene was stabilized for aerobic, en erobic, Gram stain specimen. Next, the tibial and femoral components were tested for stability and integrity. They were both note d to be stable. There is no break in the cement bone or the cement implant junction. Next, a large curette was then used to curettage all surfaces both superficial and deep to remove any type of mecha nical glycocalyx. Next, the pulsatile lavage was then used to lavage the joint including deep surfac es and superficial surfaces and the medial and lateral gutters with 3 liters of saline with Ancef. Next, the Versajet was then used to irrigate and debride all surfaces including the arthroplasty comp onents, tibia, femur and patellar polyethylene. After this was completed, pulsatile lavage 3 liters with Ancef was then used to lavage all surfaces once again including the implants. Next, top gloves and top sheet were changed and new instruments employed following lavage. Next, approximately 2 more liters of lavage solution with Ancef was then used to lavage all surfaces once again and then an 11 mm trial was placed and noted to have excellent range of motion 0-135 degre es of flexion. Stability was noted with both flexion, extension and mid flexion. Next, an 11 mm pos terior stabilized polyethylene implant was then inserted and two 10-[place] Hemovac drains were insert ed. Exparel was then injected around the deep joint capsule and superficial tissues, taking care to avoid the peroneal nerve. Next, the Hemovac drains x2 were placed. Deep capsule and then the extensor was closed using interrup marcello #1 Vicryl sutures. This was then followed by closure of the dermis with buried interrupted 2-0 V icryl. Next, the skin was closed using 2-0 nylon sutures to avoid any reactivity with the metallic s taples followed by application of a Prevena drain and then a gently compressive soft tissue dressing was applied overwrapped with an Haroon wrap. The tourniquet was released. The patient was awakened and taken to recovery in stable condition. Job ID: [id number]
--- NOTE | 2021-07-05 15:55 | Hospitalist Progress Note ---
Date of Service July 05, 2021 Assessment & Plan (1) Post-operative infection: (2) Infection of knee: Plan: ASSESSMENT AND PLAN: This 71-year-old female presents with left knee infection. 1. Left septic total knee arthroplasty , status post left total knee arth roplasty. -- 07/05/21 Dr. Ziegler s/p 1. Irrigation and debridement of left total knee arthroplasty. 2. Left total knee polyethylene exchange, 11 mm posterior stabilized. -- blood cultures pending -- continue Dapto + Zosyn Mild Hypoxia - asymptomatic clear breath sounds BL - discussed with RN, check pulse ox on forehead check CXR: mild congestion - given Lasix 20mg IV - now 91% on room air - admits to being a former smoker, possible COPD component check echo to r/o CHF 2. Deep venous thrombosis prophylaxis per orthopedics. Admission and Anticipated Discharge Date Admission Date: July 03, 2021 Subjective ff up for left knee infection, etc seen resting in bed s/p 1. Irrigation and debridement of left total knee arthroplasty. 2. Left total knee polyethylene exchange, 11 mm posterior stabilized. drowsy but easily awakened no chest pain, dyspnea, palpitations, dizziness no abdominal pain, nausea no active pain on exam no other issues Review of Systems Review of Systems: all noted and negative except for above Physical Exam Physical Exam: General- drowsy, not in distress, breathing with no effort or accessory muscle use Eyes- anicteric Neck- no JVD Lungs- clear breath sounds bilaterally, no crackles no wheezing Heart- normal rate, regular rhythm; no murmurs Abdomen- normal bowel sounds, nondistended, soft, nontender Extremities- R: no pretibial edema, no calf tenderness L LE: heavy bandage in place, drain in place with small amount of sanguinous output Neuro-drowsy, no gross focal neurologic deficits Skin- warm & dry Results & Data Results & Data ([facility]) Vital Signs (Past 12 Hours) Vital Signs Temp Pulse Pulse Resp BP BP Pulse Ox 07/05/21 15:49 36.3 C L 90 16 87/48 L 96 07/05/21 14:46 36.5 C 90 18 95/61 L 99 07/05/21 14:14 36.7 C 91 H 18 98/57 L 98 07/05/21 13:45 36.4 C L 93 H 12 95/62 L 97 07/05/21 13:30 92 H 14 101/47 L 94 07/05/21 13:20 96 H 14 114/64 94 07/05/21 13:12 07/05/21 13:10 96 H 14 99/59 L 93 07/05/21 13:00 36.4 C L 96 H 16 88/59 L 93 07/05/21 12:50 97 H 15 101/61 93 07/05/21 12:40 94 H 12 108/63 98 07/05/21 12:30 94 H 13 109/58 L 99 07/05/21 12:22 36.3 C L 96 H 14 99/59 L 98 07/05/21 07:34 36.5 C 75 18 88/55 L 96 Pulse Ox 07/05/21 15:49 07/05/21 14:46 07/05/21 14:14 07/05/21 13:45 07/05/21 13:30 07/05/21 13:20 07/05/21 13:12 97 07/05/21 13:10 07/05/21 13:00 07/05/21 12:50 07/05/21 12:40 07/05/21 12:30 07/05/21 12:22 07/05/21 07:34 all noted and reviewed including below (1) Post-operative infection Encounter type: initial encounter Postoperative infection type: superficial incisional surgical site Qualified Code(s): T81.41XA - Infection following a procedure, superficial incisional surgical site, initial encounter
[2021-07-05] MEDS: FERROUS GLUCONATE 324 MG TAB PO SCH (17:23)
[2021-07-05] MEDS: oxyCODONE HCL IR 5 MG TAB (IMMEDIATE RELEASE) PO PRN ×2 (19:27→23:41)
[2021-07-05] MEDS: DOCUSATE SODIUM 100 MG CAP PO SCH (21:28)
[2021-07-05] MEDS: SENNA 8.6 MG TAB PO SCH (21:29)
[2021-07-06] MEDS: KETOROLAC TROMETHAMINE 15 MG/ML VIAL IV SCH ×2 (01:18→07:42)
[2021-07-06] MEDS: DAPTOmycin 325 MG in SYRINGE 0 ML IV SCH (05:03)
[2021-07-06] MEDS: PIPERACILLIN/TAZOBACTAM 4.5 GM in DEXTROSE 5% 100 ML IV SCH ×3 (05:03→21:42)
[2021-07-06 05:37] LABS: Hematocrit (blood only) 32.3 % (37-47); Mean Corpuscular Hemoglobin 30.3 pg (25-34); Mean Corpuscular Volume 97.9 fL (80-100); Mean Platelet Volume 8.5 fL (7.4-10.4); Platelet Count 426 K/uL (130-400); RDW Coefficient of Variation 14.4 % (11.5-14.5); White Blood Count 8.19 K/uL (4.8-10.8)
[2021-07-06 06:26] LABS: BUN Creatinine Ratio 13.4 (10-20); Calcium 8.1 mg/dl (8.5-10.1); Creatinine Clr Calc Pharmacy 62.4 ml/min; Est GFR (African American) 64.2 ml/min; Est GFR (Non-African American) 55.4 ml/min; Potassium 3.9 mmol/L (3.5-5.1)
--- NOTE | 2021-07-06 08:32 | Electrocardiogram Report ---
Test Reason : Blood Pressure : / mmHG Vent. Rate : 073 BPM Atrial Rate : 073 BPM P-R Int : 152 ms QRS Dur : 094 ms QT Int : 400 ms P-R-T Axes : 057 005 014 degrees QTc Int : 440 ms Poor data quality, interpretation may be adversely affected Nonspecific T wave abnormality Lateral leads Abnormal ECG No previous ECGs available Confirmed by Vinny Goddard ([id number]) on 07/06/2021 8:32:11 AM Referred By: REFERRED SELF Confirmed By:Vinny Goddard
[2021-07-06] MEDS: ASPIRIN 81 MG ECTAB PO SCH ×2 (09:08→21:20)
[2021-07-06] MEDS: MULTIVITAMIN TAB PO SCH (09:09)
[2021-07-06] MEDS: FERROUS GLUCONATE 324 MG TAB PO SCH ×2 (09:09→17:21)
[2021-07-06] MEDS: DOCUSATE SODIUM 100 MG CAP PO SCH ×2 (09:09→21:20)
[2021-07-06] MEDS: CeleBREX 200 MG CAP PO SCH ×2 (09:09→21:15)
[2021-07-06] MEDS: DULoxetine HCL 30 MG CAP PO SCH (09:10)
--- NOTE | 2021-07-06 09:35 | Orthopedic Progress Note ---
Date of Service July 06, 2021 Assessment & Plan (1) Infection of knee: Plan: S/P left knee I & D TKA with polyexchange Hemovac drain was removed early am, out put 75 ml PT/OT - WBAT DVT prophylaxis- ASA, SCDs, TEDs Discharge-patient would like to return home. Awaiting cultures from intra-op Currently on Dapto and Zosyn Admission and Anticipated Discharge Date Admission Date: July 03, 2021 Supervising Physician Co-Signing Physician Notes Patient seen and examined. Agree with CIARRA Osullivan's note as above. Patient appears to be resting comfortably, but says her knee is "terrible" in terms of pain. She was able to get up and ambulate to the bathroom this morning. Blood cultures from July 03 and are negative. Knee aspirate from July 04 is growing Staphylococcus species. Intraoperative cultures from July 05 are growing gram-negative bacilli. Currently on daptomycin and Zosyn. Plan for infectious disease consult. Subjective Resting in bed, sleepy this am. She notes pain is different than pre-op but better. Denies CP, SOB, dizziness, lightheadedness. Physical Exam Physical Exam: Toes mobile, NVI. Calves soft, non tender. Dressing in place. Hemovac drain removed last evening. Results & Data ([facility]) Vital Signs (Past 12 Hours) Vital Signs Temp Pulse Resp BP BP Pulse Ox 07/06/21 07:37 36.6 C 85 16 105/68 95 07/06/21 05:34 83 98/65 L 94 07/06/21 03:02 36.8 C 85 18 81/51 L 81/55 L 93 07/05/21 23:40 94 07/05/21 22:38 36.7 C 101 H 18 103/66 92
[2021-07-06] MEDS: SODIUM CHLORIDE 0.9% 1000ML 1,000 ML IV SCH ×2 (11:01→22:59)
[2021-07-06] MEDS: traMADol HCL 50 MG TABLET PO PRN ×2 (14:11→21:04)
--- NOTE | 2021-07-06 14:21 | Hospitalist Progress Note ---
Date of Service July 06, 2021 Assessment & Plan (1) Post-operative infection: (2) Infection of knee: Plan: ASSESSMENT AND PLAN: This 71-year-old female presents with left knee infection. Left septic total knee arthroplasty , status post left total knee arthroplasty. -- 07/05/21 Dr. Ziegler s/p 1. Irrigation and debridement of left total knee arthroplasty. 2. Left total knee polyethylene exchange, 11 mm posterior stabilized. --Left knee superficial wound culture: Staph species, sensitivities pending Left knee drainage culture: Gram-negative bacilli -- blood cultures: No growth to date -- continue Dapto + Zosyn Mild Hypoxia - asymptomatic clear breath sounds BL -- CXR: mild congestion -- given Lasix 20mg IV Currently 95% on 2 L of nasal cannula Denies changes with breathing Clear breath sounds bilaterally Repeat chest x-ray pending Encouraged to use incentive spirometry every hour - admits to being a former smoker, possible COPD component check echo to r/o CHF Marginal blood pressure --Gentle IV fluids --Monitor closely Deep venous thrombosis prophylaxis per orthopedics. Thank you for this consultation. We will follow the patient with you during their hospital stay. You can reach a [facility]05 via pager @ [phone]. Admission and Anticipated Discharge Date Admission Date: July 03, 2021 Subjective Follow-up for left knee septic arthritis, status post I&D of left knee arthroplasty, etc. Seen sitting up in bed, not in distress Reports increased left knee pain today On 2 L of nasal cannula, but denies any changes with baseline breathing, no shortness of breath, cough, chest pain No other symptoms Review of Systems Review of Systems: all noted and negative except for above Physical Exam Physical Exam: General- oriented x 3, not in distress, speaks in sentences with no effort or accessory muscle use Eyes- anicteric Neck- no JVD Lungs- clear breath sounds bilaterally, no rales/wheezes Heart- normal rate, regular rhythm; no murmurs Abdomen- normal bowel sounds, nondistended, soft, nontender Extremities- no pretibial edema, no calf tenderness Neuro- alert, oriented x 3; no gross focal neurologic deficits Skin- warm & dry Results & Data Results & Data ([facility]) Vital Signs (Past 12 Hours) Vital Signs Temp Pulse Resp BP BP Pulse Ox 07/06/21 14:00 90/60 L 77/44 L 07/06/21 12:16 36.7 C 79 16 96/62 L 99 07/06/21 10:31 91/54 L 07/06/21 07:37 36.6 C 85 16 105/68 95 07/06/21 05:34 83 98/65 L 94 07/06/21 03:02 36.8 C 85 18 81/51 L 81/55 L 93 all noted and reviewed including below (1) Post-operative infection Encounter type: initial encounter Postoperative infection type: superficial incisional surgical site Qualified Code(s): T81.41XA - Infection following a procedure, superficial incisional surgical site, initial encounter
[2021-07-06] MEDS: ACETAMINOPHEN 500 MG TAB PO SCH ×2 (14:43→21:15)
--- NOTE | 2021-07-06 15:54 | XRay Report ---
SINGLE VIEW CHEST CLINICAL HISTORY: Hypoxia. FINDINGS: An AP, portable, upright chest radiograph is compared to study dated 07/04/2021. The examinat ion is degraded by portable technique and patient rotation. The heart is top normal for projection no ting atherosclerotic calcification of the thoracic aorta. Chronic interstitial thickening is similar to previous. There is bibasilar scarring/atelectasis. No airspace consolidation or large pleural effu obdulia is identified. No pneumothorax is seen. The skeletal structures are osteopenic. Arthritic change is seen in the shoulders. Fusion hardware is noted in the lower cervical spine. The bony thorax is g rossly intact. IMPRESSION: No acute cardiopulmonary abnormality. ACT 112: Negative or not required by law. Electronically signed by: Christiano Payne M.D. 07/06/2021 3:52 PM
[2021-07-06] MEDS: SENNA 8.6 MG TAB PO SCH (21:05)
[2021-07-07] MEDS: PIPERACILLIN/TAZOBACTAM 4.5 GM in DEXTROSE 5% 100 ML IV SCH (04:49)
[2021-07-07] MEDS: DAPTOmycin 325 MG in SYRINGE 0 ML IV SCH (04:49)
[2021-07-07] MEDS: oxyCODONE HCL IR 5 MG TAB (IMMEDIATE RELEASE) PO PRN ×2 (08:29→22:33)
[2021-07-07] MEDS: DULoxetine HCL 30 MG CAP PO SCH (08:29)
[2021-07-07] MEDS: ACETAMINOPHEN 500 MG TAB PO SCH ×3 (08:30→22:30)
[2021-07-07] MEDS: CeleBREX 200 MG CAP PO SCH ×2 (08:30→22:30)
[2021-07-07] MEDS: ASPIRIN 81 MG ECTAB PO SCH ×2 (08:30→22:30)
[2021-07-07] MEDS: FERROUS GLUCONATE 324 MG TAB PO SCH ×2 (08:30→17:18)
[2021-07-07] MEDS: DOCUSATE SODIUM 100 MG CAP PO SCH ×2 (08:30→22:31)
[2021-07-07] MEDS: MULTIVITAMIN TAB PO SCH (08:30)
[2021-07-07] MEDS ORDERED: CEFEPIME CONSULT ACTIVE PRN (08:38)
--- NOTE | 2021-07-07 11:00 | Orthopedic Progress Note ---
Date of Service July 07, 2021 Assessment & Plan (1) Infection of knee: Plan: Postop day 3 S/P left knee I & D TKA with polyexchange PT/OT - WBAT DVT prophylaxis- ASA, SCDs, TEDs Discharge-patient would like to return home. Patient will need 6 weeks of IV antibiotics. Several knee cultures dated 07/05/2021 showing MSSA and or Enterobacter Clocea. Currently on cefepime. Awaiting ID consult input. Admission and Anticipated Discharge Date Admission Date: July 03, 2021 Subjective Postop day 3 Patient currently sitting up in bed awake and alert. States that her knee has a little bit of discomfort this morning. No other complaints at this time. Physical Exam Physical Exam: Current Haroon wrap removed. Patient has a Prevena wound VAC over the wound. Minimal drainage noted. Her Hemovac drain has been removed and the drain site wounds appear benign. She has some mild erythema noted over the central portion of the knee that is beyond the edges of the Prevena wound VAC. She is able to do a straight leg raise and she is bending the knee actively while changing her dressing. Wound VAC left intact. Calves are soft and nontender. Toes are mobile. Results & Data ([facility]) Vital Signs (Past 12 Hours) Vital Signs Temp Pulse Resp BP BP Pulse Ox 07/07/21 07:26 36.5 C 81 17 92/57 L 91 07/06/21 23:00 79 98/65 L
[2021-07-07] MEDS: SODIUM CHLORIDE 0.9% 1000ML 1,000 ML IV SCH (12:03)
[2021-07-07] MEDS: CEFEPIME 2,000 MG in SYRINGE 0 ML IV SCH (12:06)
--- NOTE | 2021-07-07 19:01 | Hospitalist Progress Note ---
Date of Service July 07, 2021 Assessment & Plan (1) Post-operative infection: (2) Infection of knee: Plan: ASSESSMENT AND PLAN: This 71-year-old female presents with left knee infection. Left septic total knee arthroplasty , status post left total knee arthroplasty. -- 07/05/21 Dr. Ziegler s/p 1. Irrigation and debridement of left total knee arthroplasty. 2. Left total knee polyethylene exchange, 11 mm posterior stabilized. --Left knee superficial wound culture: MSSA Left knee drainage culture: Enterobacter cloacae, staph aureus -- blood cultures: No growth to date --Initially placed on Dapto + Zosyn, now on cefepime day #1 based on culture and sensitivity ID consulted Mild Hypoxia Possible component of volume overload, grade 2 diastolic dysfunction - admits to being a former smoker, possible COPD component - asymptomatic clear breath sounds BL -- CXR: mild congestion --Echo: Left ventricle is normal in size, mild concentric LVH, left ventricular motion is normal, EF 55 to 60%, diastolic dysfunction grade 2 -- given Lasix 20mg IV weaned off oxygen supplement Denies changes with breathing Clear breath sounds bilaterally Repeat chest x-ray: Unrevealing Encouraged to use incentive spirometry every hour Encouraged to stop vaping Monitor closely while IV fluids, discontinue as soon as blood pressure improves Marginal blood pressure --Gentle IV fluids --Monitor closely Deep venous thrombosis prophylaxis per orthopedics. Thank you for this consultation. We will follow the patient with you during their hospital stay. You [facility] via pager @ [phone]. Admission and Anticipated Discharge Date Admission Date: July 03, 2021 Subjective Follow-up for status post left knee I&D, septic arthritis Etc. Seen resting in bedside chair, comfortable, not in distress, States she feels improved today Left knee pain improving Denies shortness of breath, chest pain, cough, fevers or chills Breathing is at baseline No other symptom Review of Systems Review of Systems: all noted and negative except for above Physical Exam Physical Exam: General- oriented x 3, not in distress, speaks in sentences with no effort or accessory muscle use Eyes- anicteric Neck- no JVD Lungs- clear breath sounds, no crackles, no wheezing bilaterally Heart- normal rate, regular rhythm; no murmurs Abdomen- normal bowel sounds, nondistended, soft, nontender Extremities- no pretibial edema, no calf tenderness Left knee, heavy dressing in place Neuro- alert, oriented x 3; no gross focal neurologic deficits Skin- warm & dry Results & Data Results & Data ([facility]) Vital Signs (Past 12 Hours) Vital Signs Temp Pulse Resp BP Pulse Ox 07/07/21 15:58 36.4 C L 84 18 92/62 L 93 07/07/21 07:26 36.5 C 81 17 92/57 L 91 all noted and reviewed including below (1) Post-operative infection Encounter type: initial encounter Postoperative infection type: superficial incisional surgical site Qualified Code(s): T81.41XA - Infection following a procedure, superficial incisional surgical site, initial encounter
[2021-07-07] MEDS: SENNA 8.6 MG TAB PO SCH (22:30)
[2021-07-08] MEDS: CEFEPIME 2,000 MG in SYRINGE 0 ML IV SCH ×2 (00:27→13:58)
[2021-07-08] MEDS: SODIUM CHLORIDE 0.9% 1000ML 1,000 ML IV SCH (03:17)
[2021-07-08] MEDS: ACETAMINOPHEN 500 MG TAB PO SCH ×3 (09:00→19:46)
[2021-07-08] MEDS: DULoxetine HCL 30 MG CAP PO SCH (09:01)
[2021-07-08] MEDS: CeleBREX 200 MG CAP PO SCH ×2 (09:01→19:45)
[2021-07-08] MEDS: FERROUS GLUCONATE 324 MG TAB PO SCH ×2 (09:01→17:16)
[2021-07-08] MEDS: MULTIVITAMIN TAB PO SCH (09:01)
[2021-07-08] MEDS: ASPIRIN 81 MG ECTAB PO SCH ×2 (09:01→19:46)
[2021-07-08] MEDS: DOCUSATE SODIUM 100 MG CAP PO SCH ×2 (09:01→19:45)
[2021-07-08] MEDS: oxyCODONE HCL IR 5 MG TAB (IMMEDIATE RELEASE) PO PRN ×2 (09:16→17:16)
--- NOTE | 2021-07-08 09:27 | Orthopedic Progress Note ---
Date of Service July 08, 2021 Assessment & Plan (1) Infection of knee: Plan: Postop day 4 S/P left knee I & D TKA with polyexchange PT/OT - WBAT DVT prophylaxis- ASA, SCDs, TEDs Discharge-patient would like to return home. Patient will need 6 weeks of IV antibiotics. Several knee cultures dated 07/05/2021 showing MSSA and or Enterobacter Clocea. A second staph species has shown up on one of the cultures. Currently on cefepime. Awaiting ID consult input. Admission and Anticipated Discharge Date Admission Date: July 03, 2021 Subjective Postop day 4 Patient sitting up in bed. Having some pain this morning. She does appear comfortable. No other complaints this morning. Physical Exam Physical Exam: Prevena wound VAC intact and functioning. Minimal drainage. 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 Continues with swelling consistent with surgery. Calves are soft and nontender. Toes are mobile. Results & Data ([facility]) Vital Signs (Past 12 Hours) Vital Signs Temp Pulse Resp BP BP Pulse Ox 07/08/21 07:00 36.5 C 85 20 103/69 94 07/07/21 22:27 36.6 C 85 16 104/71 95
--- NOTE | 2021-07-08 18:29 | Hospitalist Progress Note ---
Date of Service July 08, 2021 Assessment & Plan (1) Post-operative infection: (2) Infection of knee: Plan: ASSESSMENT AND PLAN: This 71-year-old female presents with left knee infection. Left septic total knee arthroplasty , status post left total knee arthroplasty. -- 07/05/21 Dr. Ziegler s/p 1. Irrigation and debridement of left total knee arthroplasty. 2. Left total knee polyethylene exchange, 11 mm posterior stabilized. --Left knee superficial wound culture: MSSA Left knee drainage culture: Enterobacter cloacae, staph aureus -- blood cultures: No growth to date --Initially placed on Dapto + Zosyn, now on cefepime day #1 based on culture and sensitivity ID consulted Mild Hypoxia Possible component of volume overload, grade 2 diastolic dysfunction - admits to being a former smoker, possible COPD component - asymptomatic clear breath sounds BL -- CXR: mild congestion --Echo: Left ventricle is normal in size, mild concentric LVH, left ventricular motion is normal, EF 55 to 60%, diastolic dysfunction grade 2 -- given Lasix 20mg IV weaned off oxygen supplement Denies changes with breathing Clear breath sounds bilaterally Repeat chest x-ray: Unrevealing Encouraged to use incentive spirometry every hour Encouraged to stop vaping Monitor closely while IV fluids, discontinue as soon as blood pressure improves Marginal blood pressure --Gentle IV fluids --Monitor closely Deep venous thrombosis prophylaxis per orthopedics. Thank you for this consultation. We will follow the patient with you during their hospital stay. You can reach a member of the [facility] Hospitalist Team 23/05 via pager @ [phone]. Admission and Anticipated Discharge Date Admission Date: July 03, 2021 Subjective Pt was seen and examined for follow up of left knee infected sitting in bed with no distress Pt said that she feels fine denies any fever, chills, SOB and palpitation Physical Exam Physical Exam: General- No acute distress Head- atraumatic Eyes- PERRL, EOMI, ENT- oropharynx clear Neck- supple, no JVD Lungs- clear to auscultation Heart- regular rhythm; no murmur Abdomen- normal bowel sounds, soft, nontender Extremities- no calf tenderness, +Left knee with wound vac in place Neuro- alert, oriented x 3; PERRL, EOMI; no facial palsy; no dysarthria Skin- warm & dry Results & Data Results & Data ([facility]) Vital Signs (Past 12 Hours) Vital Signs Temp Pulse Resp BP Pulse Ox 07/08/21 14:58 36.5 C 88 20 105/64 95 07/08/21 07:00 36.5 C 85 20 103/69 94 (1) Post-operative infection Encounter type: initial encounter Postoperative infection type: superficial incisional surgical site Qualified Code(s): T81.41XA - Infection following a procedure, superficial incisional surgical site, initial encounter
[2021-07-08] MEDS: SENNA 8.6 MG TAB PO SCH (19:46)
[2021-07-09] MEDS: CEFEPIME 2,000 MG in SYRINGE 0 ML IV SCH (01:01)
[2021-07-09 07:42] LABS: Creatinine Clr Calc Pharmacy 82.4 ml/min; Est GFR (African American) 89.9 ml/min; Est GFR (Non-African American) 77.6 ml/min
[2021-07-09] MEDS: oxyCODONE HCL IR 5 MG TAB (IMMEDIATE RELEASE) PO PRN ×3 (07:43→20:06)
[2021-07-09] MEDS: ASPIRIN 81 MG ECTAB PO SCH ×2 (08:42→20:08)
[2021-07-09] MEDS: FERROUS GLUCONATE 324 MG TAB PO SCH ×2 (08:42→17:37)
[2021-07-09] MEDS: DULoxetine HCL 30 MG CAP PO SCH (08:42)
[2021-07-09] MEDS: MULTIVITAMIN TAB PO SCH (08:42)
[2021-07-09] MEDS: DOCUSATE SODIUM 100 MG CAP PO SCH ×2 (08:42→20:08)
[2021-07-09] MEDS: ACETAMINOPHEN 500 MG TAB PO SCH ×3 (08:43→20:08)
[2021-07-09] MEDS: CeleBREX 200 MG CAP PO SCH ×2 (08:43→20:07)
[2021-07-09] MEDS: CIPROFLOXACIN 250 MG TAB PO SCH ×2 (10:35→20:07)
[2021-07-09] MEDS: rifAMPin 300 MG CAPSULE PO SCH ×2 (10:35→20:08)
--- NOTE | 2021-07-09 11:22 | Hospitalist Progress Note ---
Date of Service July 09, 2021 Assessment & Plan (1) Post-operative infection: (2) Infection of knee: Plan: ASSESSMENT AND PLAN: This 71-year-old female presents with left knee infection. Left septic total knee arthroplasty , status post left total knee arthroplasty. -- 07/05/21 Dr. Ziegler s/p 1. Irrigation and debridement of left total knee arthroplasty. 2. Left total knee polyethylene exchange, 11 mm posterior stabilized. --Left knee superficial wound culture: MSSA Left knee drainage culture: Enterobacter cloacae, staph aureus -- blood cultures: No growth to date --Initially placed on Dapto + Zosyn, now on cefepime day #1 based on culture and sensitivity - ID [facility] recommended to change IV cefepime to ancef and adding Rifampin and Cipro for 6 weeks - Then after 6 weeks, pt will need oral therapy suppression with Keflex and rifampin for 6 months or longer - Will need follow up appointment with ID outpatient - Monitor CBC and CMP weekly while on abx Mild Hypoxia Possible component of volume overload, grade 2 diastolic dysfunction - admits to being a former smoker, possible COPD component - asymptomatic clear breath sounds BL -- CXR: mild congestion --Echo: Left ventricle is normal in size, mild concentric LVH, left ventricular motion is normal, EF 55 to 60%, diastolic dysfunction grade 2 -- given Lasix 20mg IV weaned off oxygen supplement Denies changes with breathing Clear breath sounds bilaterally Repeat chest x-ray: Unrevealing Encouraged to use incentive spirometry every hour Encouraged to stop vaping Monitor closely while IV fluids, discontinue as soon as blood pressure improves Marginal blood pressure --Gentle IV fluids --Monitor closely Deep venous thrombosis prophylaxis per orthopedics. Thank you for this consultation. We will follow the patient with you during their hospital stay. You can reach a [facility] via pager @ [phone]. Admission and Anticipated Discharge Date Admission Date: July 03, 2021 Subjective Pt was seen and examined for follow up of left knee infected Sitting in bed with no acute distress Pt said that she feels fine Script given to case management to arrange for the abx infusion at home denies any fever, chills, SOB and palpitation Physical Exam Physical Exam: General- No acute distress Head- atraumatic Eyes- PERRL, EOMI, ENT- oropharynx clear Neck- supple, no JVD Lungs- clear to auscultation Heart- regular rhythm; no murmur Abdomen- normal bowel sounds, soft, nontender Extremities- no calf tenderness, +Left knee with wound vac in place Neuro- alert, oriented x 3; PERRL, EOMI; no facial palsy; no dysarthria Skin- warm & dry Results & Data Results & Data ([facility]) Vital Signs (Past 12 Hours) Vital Signs Temp Pulse Resp BP Pulse Ox 07/09/21 07:00 36.6 C 71 18 122/80 94 (1) Post-operative infection Encounter type: initial encounter Postoperative infection type: superficial incisional surgical site Qualified Code(s): T81.41XA - Infection following a procedure, superficial incisional surgical site, initial encounter
[2021-07-09] MEDS: ceFAZolin 2000MG 2,000 MG/15 ML SYR IV SCH ×2 (12:50→20:07)
[2021-07-09] MEDS: SENNA 8.6 MG TAB PO SCH (20:21)
[2021-07-10] MEDS: oxyCODONE HCL IR 5 MG TAB (IMMEDIATE RELEASE) PO PRN (01:33)
[2021-07-10] MEDS: ceFAZolin 2000MG 2,000 MG/15 ML SYR IV SCH (05:14)
--- NOTE | 2021-07-10 07:41 | Orthopedic Progress Note ---
Date of Service July 09, 2021 Assessment & Plan (1) Infection of knee: Plan: Postop day 6 status post septic left TKA Continue PT/OT protocols. Weightbearing as tolerated. IV antibiotics and oral antibiotics as noted by [facility] infectious disease team. DVT prophylaxis and pain management as written. Plan for discharge to home on 07/10/2021 with home health services for PT and OT as well as IV antibiotic administration and lab draws. Admission and Anticipated Discharge Date Admission Date: July 03, 2021 Subjective Postop day 6 Patient sitting up in bed awake and alert. Mild pain in the knee this afternoon. No other complaints. Discussed plans for IV antibiotics and oral antibiotics as dictated by infectious disease team. Patient understands. Physical Exam Physical Exam: Jessi wound VAC functioning well. Minimal drainage noted. Mild bruising around the central portion. Calves are soft and nontender. Neurovascular is intact. Toes are mobile. Results & Data ([facility]) Vital Signs (Past 12 Hours) Vital Signs Temp Pulse Resp BP Pulse Ox 07/10/21 07:12 36.5 C 80 16 123/78 94 07/09/21 22:26 36.5 C 74 16 118/75 97
[2021-07-10] MEDS: DULoxetine HCL 30 MG CAP PO SCH (07:46)
[2021-07-10] MEDS: ACETAMINOPHEN 500 MG TAB PO SCH (07:46)
[2021-07-10] MEDS: DOCUSATE SODIUM 100 MG CAP PO SCH (07:46)
[2021-07-10] MEDS: FERROUS GLUCONATE 324 MG TAB PO SCH (07:46)
[2021-07-10] MEDS: ASPIRIN 81 MG ECTAB PO SCH (07:47)
[2021-07-10] MEDS: CeleBREX 200 MG CAP PO SCH (07:47)
[2021-07-10] MEDS: CIPROFLOXACIN 250 MG TAB PO SCH (07:48)
[2021-07-10] MEDS: MULTIVITAMIN TAB PO SCH (07:48)
[2021-07-10] MEDS: rifAMPin 300 MG CAPSULE PO SCH (07:48)
--- NOTE | 2021-07-10 08:46 | Orthopedic Progress Note ---
Date of Service July 10, 2021 Assessment & Plan (1) Infection of knee: Plan: Postop day 7 status post septic left TKA Continue PT/OT protocols. DVT prophylaxis with aspirin p.o. twice daily, SCDs., TOMAS brannone Pain management as written. Patient progressing and plan for discharge to home today on IV antibiotics as well as oral antibiotics for 6 weeks. Home health services have been arranged for PT, IV antibiotic administration, and lab draws. Follow-up with Dr. Ziegler in 1 week. Admission and Anticipated Discharge Date Admission Date: July 03, 2021 Subjective Postop day 7 Patient sitting up in bed awake and alert. No complaints this morning. Comfortable. Denies shortness of breath, chest pain, lightheadedness. She is a nxious to go home today. Physical Exam Physical Exam: Prevena wound VAC removed. Suture line is intact. Minimal erythema and bruising. Some areas of superficial skin loss along the suture line. Suture line is intact. Calves are soft nontender. Toes are mobile. Wound redressed with Adaptic, 4 x 4's, and Haroon wrap. Results & Data ([facility]) Vital Signs (Past 12 Hours) Vital Signs Temp Pulse Resp BP Pulse Ox 07/10/21 07:12 36.5 C 80 16 123/78 94 07/09/21 22:26 36.5 C 74 16 118/75 97
--- NOTE | 2021-07-10 11:28 | Hospitalist Progress Note ---
Date of Service July 10, 2021 Assessment & Plan (1) Post-operative infection: (2) Infection of knee: Plan: ASSESSMENT AND PLAN: This 71-year-old female presents with left knee infection. Left septic total knee arthroplasty , status post left total knee arthroplasty. -- 07/05/21 Dr. Ziegler s/p 1. Irrigation and debridement of left total knee arthroplasty. 2. Left total knee polyethylene exchange, 11 mm posterior stabilized. --Left knee superficial wound culture: MSSA Left knee drainage culture: Enterobacter cloacae, staph aureus -- blood cultures: No growth to date --Initially placed on Dapto + Zosyn, now on cefepime day #1 based on culture and sensitivity - ID C recommended to change IV cefepime to ancef and adding Rifampin and Cipro for 6 weeks - Then after 6 weeks, pt will need oral therapy suppression with Keflex and rifampin for 6 months or longer - IV abx infusion arranged by case mgr - Will need follow up appointment with ID outpatient - Monitor CBC and CMP weekly while on abx Mild Hypoxia Possible component of volume overload, grade 2 diastolic dysfunction - admits to being a former smoker, possible COPD component - asymptomatic -- CXR: mild congestion --Echo: Left ventricle is normal in size, mild concentric LVH, left ventricular motion is normal, EF 55 to 60%, diastolic dysfunction grade 2 -- Lasix 20mg IV was given --Clinically stable weaned off oxygen supplement Denies changes with breathing Clear breath sounds bilaterally Repeat chest x-ray: Unrevealing Encouraged to use incentive spirometry every hour Encouraged to stop vaping Saturated well on RA Monitor closely while IV fluids, discontinue as soon as blood pressure improves Marginal blood pressure --Gentle IV fluids --Monitor closely Deep venous thrombosis prophylaxis per orthopedics. Thank you for this consultation. We will follow the patient with you during their hospital stay. You can reach a member of the [facility] Hospitalist Team 23/05 via pager @ [phone]. Admission and Anticipated Discharge Date Admission Date: July 03, 2021 Subjective Pt was seen and examined for follow up of left knee infected Sitting at the edge of the bed comfortable with no acute distress Pt already got dress ready to go home Case management already arranged for abx infusion at home Denies any chest pain, palpitation, dizziness and SOB Review of Systems Review of Systems: All systems reviewed & are unremarkable except as noted in Subjective Physical Exam Physical Exam: General- No acute distress Head- atraumatic Eyes- PERRL, EOMI, ENT- oropharynx clear Neck- supple, no JVD Lungs- clear to auscultation Heart- regular rhythm; no murmur Abdomen- normal bowel sounds, soft, nontender Extremities- no calf tenderness, +Left knee with wound vac in place Neuro- alert, oriented x 3; PERRL, EOMI; no facial palsy; no dysarthria Skin- warm & dry Results & Data Results & Data ([facility]) Vital Signs (Past 12 Hours) Vital Signs Temp Pulse Pulse Pulse Resp BP BP 07/10/21 09:26 36.5 C 93 H 84 80 16 120/81 123/78 07/10/21 07:12 36.5 C 80 16 123/78 Pulse Ox 07/10/21 09:26 94 07/10/21 07:12 94 (1) Post-operative infection Encounter type: initial encounter Postoperative infection type: superficial incisional surgical site Qualified Code(s): T81.41XA - Infection following a procedure, superficial incisional surgical site, initial encounter
--- NOTE | 2021-07-21 15:41 | Discharge Summary ---
Date of Service July 21, 2021 Admission HPI Per Admitting Provider 71 y/o white female presenting post-op left TKA with concern for infection. She had a Left TKA on 06/[address] Ziegler. She was seen in the office about a week later with early onset left knee cellulitis and started on antibiotics. She was seen in follow up with worsening symptoms of infection and admitted for further treatment. She denies fever but has had some chills and pain left knee. Denies CP, sob today. Principal Diagnosis s/p left TKA I &D with poly exchange Discharge Exam Dressing in place, NVI. Calves soft Discharge Data Allergies Allergy/AdvReac Type Severity Reaction Status Date / Time bupropion [From Wellbutrin] AdvReac Hives Unverified 07/03/21 18:40 iodine AdvReac Hives Unverified 07/03/21 18:40 shellfish derived AdvReac Hives Unverified 07/03/21 18:40 Consultations 07/03/21 20:04 ED Decision to Admit Stat 07/03/21 21:13 Consult Hospitalist Routine 07/06/21 09:58 Consult Infectious Diseases Routine Procedures Performed Operation Date: 07/05/21 08:45 Actual Procedures p left knee polyethelene exchange(Left) - Enio Ziegler DO s Irrigation and debridement left total knee arthroplasty(Left) - Enio Ziegler DO Ordered Studies 07/04/21 US venous doppler LE LT Routine Hospital Course (1) Infection of knee: Postop day 7 status post septic left TKA Continue PT/OT protocols. DVT prophylaxis with aspirin p.o. twice daily, SCDs., TOMAS hose Pain management as written. Patient progressing and plan for discharge to home today on IV antibiotics as well as oral antibiotics for 6 weeks. Home health services have been arranged for PT, IV antibiotic administration, and lab draws. Follow-up with Dr. Ziegler in 1 week. Total Time Total Time Spent Total Time Spent (In Minutes): 10 Discharge Plan Discharge Items Patient Disposition: Home - Home Health Services Reason For Visit: TKA INFECTION Discharge Diagnosis: TKA infection Activity: Per Instructions section Weightbearing: Left weightbearing Weightbearing Comment: As tolerated with walker Non-emergency contact: Surgeon Call non-emergency contact if: your pain is not controlled, your temperature is above 101.5, your wound has increased redness and your wound has increased drainage Follow-up/Referrals: Enio Ziegler, DO [Surgeon] - (Follow-up in [address] Ziegler or his PA for wound check) Alexandro Goncalves MD [Physician] - 07/20/21 12:40 pm (Date & Time 08/19/2021 12:40 PM Provider Alexandro Goncalves MD Department Infectious Disease [facility] ) PCP,NO [Primary Care Provider] - Diet: Regular Addtl Attending Provider Instructions: You will be taking IV antibiotics for 6 weeks. During this time you will have weekly lab draws with results being sent to Dr. Alexandro Goncalves in [place] and to Dr. Ziegler. Dr. Goncalves will change your antibiotics as needed. Home health services will help you with your IV antibiotics and do your lab draws. ACTIVITY RECOMMENDATIONS: SELF CARE INSTRUCTIONS AFTER TOTAL KNEE REPLACEMENT A. You may need to continue a physical therapy program after discharge from the hospital. There are several options available to you. Your doctor will assist you in selecting the best one for you. 1. An out-patient facility 2 to 3 times a week for therapy or home therapy. 2. Continue working on all exercises taught to you in the hospital. Your goals should be to increase bending of your knee to 90 degrees and beyond and to fully straighten your knee. B. You may progress at your own pace from walking with a walker or crutches to a cane; then to no assistive devices. C. Make walking a part of your daily routine. Be up as much as comfortable with rest periods throughout the day. Rest with leg elevation is very important. Use the ice wrap frequently for the first 3-4 weeks. D. There are no restrictions on activities. You may ride in a car, shop, participate in system operator and all social activities. E. Wear the long elastic stockings (TOMAS hose) 20 hours a day for 2 weeks after surgery. They can be removed several times a day for laundering and for a bath. F. You may shower, no tub baths until cleared by your doctor. SPECIAL CARE INSTRUCTIONS: VERY IMPORTANT TO READ AND REVIEW A. There are a few signs you need to watch for after you are home. Call [facility] if you notice any of the followin. Increased severe knee pain. Some pain is expected especially when you exercise. 2. Increased swelling in your leg or knee; pain or swelling of the calf muscle in either lower leg. 3. Any fluid drainage from the incision. 4. Shortness of breath or chest pain. B. Please call [facility] at if you have any concerns or questions about your operation or recovery. The doctor or his nurse will return your call promptly. C. You must take antibiotics before dental work, bladder, bowel or other surgery. Your doctor will provide you with a permanent care to carry describing this precaution. IMPORTANT: * REMEMBER TO TAKE ASPIRIN, 81 MG, TWICE DAILY FOR 4 WEEKS UNLESS OTHERWISE DIRECTED. THIS IS YOUR BLOOD THINNER. * HIGH RISK PATIENTS MAY BE PRESCRIBED A STRONGER BLOOD THINNER. THIS WILL BE PROVIDED AT DISCHARGE. * CALL IF INCREASED PAIN, REDNESS, DRAINAGE OR FEVER GREATER THAT 101. * WEAR TOMAS HOSE 20 HOURS PER DAY FOR 2 WEEKS. * Prevena- This is a large suction dressing covering your incision. This will help pull any excess drainage from the wound and allow your incision to heal properly. You may shower with this if you can keep the unit outside of the shower. If any bleeding or leakage is noted please call your doctor's office. This will remain on your incision for 7 days and then should be removed. This can be done yourself or by the home nursing staff if applicable. The entire unit is disposable once removed. Once removed, keep incision clean and dry. If redness or drainage is noted, please call your surgeon. . FOLLOW UP VISIT: If appointment is not already scheduled: Please call [facility] to make a follow-up appointment for 2 weeks after your surgery at . You will need to follow up with Dr Alexandro Goncalves ([facility] Infectious Disease Team) Appointment as noted above Pending Studies at Discharge: No Stand-Alone Forms: [employer], Opioid Pain Management, Smoking Cessation Medications and DC Order Prescriptions: New cefazolin 1 gram recon soln 2 g IV Q8H 42 Days RF: 0 aspirin 81 mg Tablet,Delayed Release (Dr/Ec) 81 mg PO BID 30 Days Qty: 60 RF: 0 acetaminophen [Tylenol Extra Strength] 500 mg Tablet 1,000 mg PO TID 14 Days Qty: 84 RF: 0 polyethylene glycol 3350 [Miralax] 17 gram powder in packet 17 g PO DAILY PRN (Reason: constipation) Qty: 5 RF: 0 celecoxib [Celebrex] 200 mg Capsule 200 mg PO BID 14 Days Qty: 28 RF: 0 ciprofloxacin HCl 250 mg Tablet 750 mg PO BID 42 Days Qty: 252 RF: 0 rifampin 300 mg Capsule 300 mg PO BID 42 Days Qty: 84 RF: 0 oxycodone 5 mg Tablet 5 - 10 mg PO Q4H PRN (Reason: pain) Qty: 36 RF: 0 Continued duloxetine 30 mg Capsule, Delayed Rel Sprinkle 90 mg PO DAILY RF: 0 Discontinued celecoxib [Celebrex] 200 mg Capsule 200 mg PO BID RF: 0 aspirin 81 mg Tablet,Delayed Release (Dr/Ec) 81 mg PO DAILY RF: 0 acetaminophen [Tylenol Extra Strength] 500 mg Tablet 100 mg PO Q8H PRN (Reason: Pain) RF: 0 cefadroxil 500 mg Capsule 1,500 mg PO BID RF: 0 Discharge Orders: Discharge Order (Routine); Ordered 07/10/21 Ordered By: Jacob Vance/Other Patient Handouts: DVT Post Op Prevention Admission Data Admit Date/Time: 07/03/21 20:50 Attending Provider: Enio Ziegler Admit Provider: Enio Ziegler Primary Care Provider: PCP,NO Other Providers: Enio Ziegler ; Sarah Marks ; Joaquin Marc ; Jitendra Quezada ; Carina Briceno ; Teri Martinez ; Juana Almanza ; Khushbu Goncalves ; Myles Cox ; Kalen Horta ; Surjit Lennon ; Johanna Srivsatava ; Colleen Lazo ; Emiliano Ortiz ; Cat Teresa ; Philly Mehta ; Nehemias Peters ; Karely Andrew ; Hortencia Calixto ; Madan Rizvi ; Kristin Gale I. ; Abhijeet Santos ; Blake Olson ; Marleny Cordero ; Alexis Acosta ; Siria Garcia ; Alexandro Goncalves I. ; Reji Monet II ; Tammy Bauman ; Rogelio Sauceda Other Interventions: Discharge Summary Assessment (RN) Last Done: 07/10/21 09:26
== END 2021-07-10 12:15 | disposition home health service (06) | DRG 467 ==
LOC: ED 16:47 → 3E 20:50
DX: Z91.041 Radiographic dye allergy status; T84.54XA Infection and inflammatory reaction due to internal left knee prosthesis, initial encounter; Y92.009 Unspecified place in unspecified non-institutional (private) residence as the place of occurrence of the external cause; Z79.82 Long term (current) use of aspirin; E87.70 Fluid overload, unspecified; L03.116 Cellulitis of left lower limb; Z87.891 Personal history of nicotine dependence; R09.02 Hypoxemia; Z96.652 Presence of left artificial knee joint